=== PATIENT | male | born 1985 | race Caucasian/White ===

== ENCOUNTER 2020-02-24 07:07 | Emergency (ER) | payer OTHER ==
[~2020-02-24] VITALS: Ht 177.8 cm; Wt 79.4 kg
[~2020-02-24 07:07] MED LIST: BENTYL 20 MG TA20 M1 PO; CIPRO500 MG PO; FLAGYL500 MG PO; HYDROXYZINE HCL25 M1 PO; PROTONIX40 M1 PO; ZOLOFT25 MG PO
[2020-02-24 07:40] LABS: HEMATOCRIT 50.2 % (42.0-52.0); HEMOGLOBIN 17.6 gm/dL (14.0-18.0); MCH 31.7 pg (26.0-34.0); MCV 90.5 fL (80.0-100.0); MPV 7.6 fl. (7.2-11.1); NUCLEATED RBCS 0 /100WBC; PLATELET COUNT* 328 thou/uL (150-400); RBC 5.55 mil/uL (4.50-6.00); RDW-CV 13.6 % (10.5-14.5)
[2020-02-24 07:44] LABS: CALCIUM 9.5 mg/dL (8.5-10.1); CREATININE 1.1 mg/dL (0.6-1.3); POTASSIUM 3.8 mmol/L (3.5-5.1)
[2020-02-24 07:56] LABS: MAGNESIUM 1.7 mg/dL (1.8-2.4); TOTAL PROTEIN 8.5 g/dL (6.4-8.2)
[2020-02-24 08:15] LABS: ABSOLUTE LYMPHOCYTES 1.1 thou/uL (0.8-5.3); ABSOLUTE MONOCYTES 0.1 thou/uL (0.0-1.2); ABSOLUTE NEUTROPHILS 9.8 thou/uL (1.6-8.1)
[2020-02-24 08:16] LABS: PLATELET ESTIMATE ADEQUATE
[2020-02-24 08:58] LABS: URINE BLOOD 2+ (Negative); URINE CLARITY CLEAR; URINE COLOR YELLOW; URINE GLUCOSE-RANDOM NEGATIVE (Negative); URINE KETONES 3+ (Negative); URINE LEUKOCYTES-REFLEX NEGATIVE (Negative); URINE NITRITE-REFLEX NEGATIVE (Negative); URINE PROTEIN 2+ (Negative); URINE UROBILINOGEN 0.2 E.U./dl (0.2-1.0)
[2020-02-24 08:59] LABS: ICTOTEST (BILI CONFIRMATORY) Negative (Negative); URINE BILIRUBIN 1+ (Negative)
[2020-02-24 09:06] LABS: AMP/METHAMP Negative (Negative); BARBITURATES Negative (Negative); BENZODIAZEPINES Negative (Negative); COCAINE Negative (Negative); METHADONE Negative (Negative); OPIATES Negative (Negative); PCP Negative (Negative); SQUAMOUS NONE SEEN /LPF (0-3); THC POSITIVE (Negative)
[2020-02-24 09:07] LABS: BACTERIA-REFLEX >30 Many /HPF (None Seen); URINE WBC-REFLEX None Seen /HPF (0-5)
[2020-02-24 09:08] LABS: CASTS None Seen /LPF (None Seen); CRYSTALS None Seen /LPF (None Seen); MUCUS 4-6 Moderate strn/LPF (None Seen)
[2020-02-24] MEDS ORDERED: ZOFRAN ODT4 MG PO (11:14)
[2020-02-24] MEDS ORDERED: PROMS25 WY RECTAL (11:14)
[2020-02-24 12:10] VITALS: BP 119/48
== END 2020-02-24 12:12 | disposition home or self-care (01) ==
LOC: M.ERS 07:07
PROVIDERS: Personal Emergency Response Attendant
DX: N23 Unspecified renal colic (principal); R11.2 Nausea with vomiting, unspecified; F17.210 Nicotine dependence, cigarettes, uncomplicated; Z88.0 Allergy status to penicillin; Z79.899 Other long term (current) drug therapy; Z98.890 Other specified postprocedural states

== ENCOUNTER 2020-12-24 23:04 | Emergency (ER) | payer OTHER ==
[~2020-12-24] VITALS: Ht 177.8 cm; Wt 79.4 kg
[~2020-12-24 23:04] MED LIST changes: +PROMS25 WY RECTAL; +ZOFRAN ODT4 MG PO
[2020-12-24 23:36] LABS: ABSOLUTE BASOPHILS 0.1 thou/uL (0.0-0.2); ABSOLUTE EOSINOPHILS 0.1 thou/uL (0.0-0.7); ABSOLUTE LYMPHOCYTES 1.8 thou/uL (0.8-5.3); ABSOLUTE MONOCYTES 0.6 thou/uL (0.0-1.2); ABSOLUTE NEUTROPHILS 11.4 thou/uL (1.6-8.1); BASOPHILS 0.4 %; EOSINOPHILS 0.5 %; MCH 31.3 pg (26.0-34.0); MCHC 34.6 g/dL (28.0-37.0); MCV 90.3 fL (80.0-100.0); MONOCYTES 4.4 %; MPV 7.2 fl. (7.2-11.1); NUCLEATED RBCS 0 /100WBC; PLATELET COUNT* 344 thou/uL (150-400); POLYS 81.7 %; RBC 5.43 mil/uL (4.50-6.00); WBC 13.9 thou/uL (4.0-11.0)
[2020-12-24 23:43] LABS: CALCIUM 10.2 mg/dL (8.5-10.1); CREATININE 1.3 mg/dL (0.6-1.3); POTASSIUM 3.7 mmol/L (3.5-5.1)
[2020-12-24 23:48] LABS: ALBUMIN 4.7 g/dL (3.4-5.0); TOTAL BILIRUBIN 0.7 mg/dL (<0.1-1.0); TOTAL PROTEIN 7.8 g/dL (6.4-8.2)
[2020-12-25 01:01] LABS: BE -2.4 mmol/L (-2 to +3); PO2 VENOUS 55.3 mmHg (35.0-45.0)
[2020-12-25 02:02] LABS: URINE BILIRUBIN NEGATIVE (Negative); URINE BLOOD 1+ (Negative); URINE CLARITY SL HAZY; URINE COLOR YELLOW; URINE GLUCOSE-RANDOM NEGATIVE (Negative); URINE KETONES 3+ (Negative); URINE LEUKOCYTES-REFLEX NEGATIVE (Negative); URINE NITRITE-REFLEX NEGATIVE (Negative); URINE PROTEIN NEGATIVE (Negative); URINE UROBILINOGEN 0.2 E.U./dl (0.2-1.0)
[2020-12-25 02:10] LABS: AMP/METHAMP Negative (Negative); BARBITURATES Negative (Negative); BENZODIAZEPINES Negative (Negative); COCAINE Negative (Negative); METHADONE Negative (Negative); OPIATES Negative (Negative); PCP Negative (Negative); THC POSITIVE (Negative)
[2020-12-25 02:18] LABS: AMORPHOUS PHOSPHATES Many /LPF (None Seen); BACTERIA-REFLEX 1-9 Few /HPF (None Seen); CASTS None Seen /LPF (None Seen); MUCUS 4-6 Moderate strn/LPF (None Seen); SQUAMOUS 0-3 Few /LPF (0-3); URINE WBC-REFLEX None Seen /HPF (0-5)
[2020-12-25] MEDS ORDERED: HALDOL 0.5 MG0.5 MG PO (03:49)
[2020-12-25] MEDS ORDERED: PROMS25 WY RECTAL (03:49)
[2020-12-25] MEDS ORDERED: PHENERGAN 25 MG25 M1 PO (03:49)
[2020-12-25 04:06] VITALS: BP 138/76
--- NOTE | 2020-12-26 12:00 | EKG ---
[place] [address] ELECTROCARDIOGRAM REPORT Name: SANYA CAPELLAN Room: [facility]#: [id number] Admission: 12/24/20 Attend Phys: Discharge: 12/25/20 Date of : 85 Date of Service: 12/24/202320 Report #: [id number] THIS REPORT FOR: //name// [facility] ED Test Date: 2020-12-24 Test Time: 23:21:13 Pat Name: SANYA CAPELLAN Department: Room: Gender: Finishing Supervisor: ESTRELLA Rivas : 1985 Requested By: Melina Nieto Order Number: [id number] Orly MD: Yoshi Rosenberg Measurements Intervals [place] Rate: 68 P: 73 [place]: 153 QRS: 83 QRSD: 93 T: 67 QT: 411 QTc: 438 Interpretive Statements Sinus rhythm with sinus pauses and junctional escape No previous ECG available for comparison Electronically Signed On 12-26-2020 12:00:15 CDT by Yoshi Rosenberg [email or web address] <ELECTRONICALLY SIGNED> By: Yoshi Rosenberg MD, [facility] 12/26/20 [facility] [place] [facility] [place] 20 20 Yoshi Rosenberg MD, FAC /EPI
== END 2020-12-25 04:05 | disposition home or self-care (01) ==
LOC: M.ERS 23:04
PROVIDERS: Personal Emergency Response Attendant
DX: R11.2 Nausea with vomiting, unspecified (principal); K58.9 Irritable bowel syndrome, unspecified; F17.210 Nicotine dependence, cigarettes, uncomplicated; Z88.0 Allergy status to penicillin; Z90.89 Acquired absence of other organs; Z79.899 Other long term (current) drug therapy

== ENCOUNTER 2021-01-25 15:57 | Inpatient (IN) | payer OTHER ==
[~2021-01-25] VITALS: Ht 177.8 cm; Wt 79.4 kg
[~2021-01-25 15:57] MED LIST changes: +HALDOL 0.5 MG0.5 MG PO; +PHENERGAN 25 MG25 M1 PO
[2021-01-25 16:09] VITALS: BP 144/123
[2021-01-25 16:51] LABS: URINE BILIRUBIN NEGATIVE (Negative); URINE BLOOD 1+ (Negative); URINE CLARITY CLEAR; URINE COLOR YELLOW; URINE GLUCOSE-RANDOM NEGATIVE (Negative); URINE KETONES 2+ (Negative); URINE LEUKOCYTES-REFLEX NEGATIVE (Negative); URINE NITRITE-REFLEX NEGATIVE (Negative); URINE PROTEIN TRACE (Negative); URINE UROBILINOGEN 0.2 E.U./dl (0.2-1.0)
[2021-01-25 16:53] LABS: HEMATOCRIT 48.3 % (42.0-52.0); HEMOGLOBIN 16.9 gm/dL (14.0-18.0); MCH 31.8 pg (26.0-34.0); NUCLEATED RBCS 0 /100WBC; PLATELET COUNT* 309 thou/uL (150-400); RBC 5.31 mil/uL (4.50-6.00); RDW-CV 13.9 % (10.5-14.5); WBC 12.7 thou/uL (4.0-11.0)
[2021-01-25 16:59] LABS: BACTERIA-REFLEX 1-9 Few /HPF (None Seen); CRYSTALS None Seen /LPF (None Seen); HYALINE CASTS 0-3 Few /LPF (None Seen); MUCUS >6 Heavy strn/LPF (None Seen); SQUAMOUS 0-3 Few /LPF (0-3); URINE RBC 3-10 Few /HPF (0-2); URINE WBC-REFLEX 0-5 Rare /HPF (0-5)
[2021-01-25 17:10] LABS: CALCIUM 9.8 mg/dL (8.5-10.1); CREATININE 1.2 mg/dL (0.6-1.3); POTASSIUM 3.8 mmol/L (3.5-5.1)
[2021-01-25 17:15] LABS: ALBUMIN 4.8 g/dL (3.4-5.0); TOTAL PROTEIN 8.2 g/dL (6.4-8.2)
[2021-01-25 17:33] LABS: ABSOLUTE LYMPHOCYTES 1.8 thou/uL (0.8-5.3); ABSOLUTE MONOCYTES 0.4 thou/uL (0.0-1.2); ABSOLUTE NEUTROPHILS 10.5 thou/uL (1.6-8.1); PLATELET ESTIMATE ADEQUATE
[2021-01-25 22:00] VITALS: BP 143/72
[2021-01-26 02:00] VITALS: BP 136/85
[2021-01-26 05:57] VITALS: BP 116/61
[2021-01-26 08:45] VITALS: BP 116/61
== END 2021-01-26 08:53 | disposition left against medical advice (07) | DRG 392 ==
LOC: M.ERS 15:57 → M.TBA-ER 18:19
PROVIDERS: Physician Assistant; ADMIT Internal Medicine; ATTEND Internal Medicine
DX: R10.9 Unspecified abdominal pain (principal); R11.10 Vomiting, unspecified; F12.90 Cannabis use, unspecified, uncomplicated; Z20.822 Contact with and (suspected) exposure to COVID-19; Z53.29 Procedure and treatment not carried out because of patient's decision for other reasons; Z87.442 Personal history of urinary calculi; Z88.0 Allergy status to penicillin

== ENCOUNTER 2021-02-03 11:03 | Emergency (ER) | payer OTHER ==
[~2021-02-03] VITALS: Ht 177.8 cm; Wt 79.4 kg
[2021-02-03 11:25] VITALS: BP 143/87
== END 2021-02-03 11:50 | disposition home or self-care (01) ==
LOC: M.ERS 11:03
DX: R11.15 Cyclical vomiting syndrome unrelated to migraine (principal); F17.210 Nicotine dependence, cigarettes, uncomplicated; Z88.0 Allergy status to penicillin